=== PATIENT | female | born 1970 | race Caucasian/White ===

== ENCOUNTER → 2016-08-09 | Outpatient (CLI) | payer BC ==
[~2016-08-09] MED LIST: ALBUTEROL0.09 MG/Ac IH; AMBIEN10 M1 PO; APRISO0.375 GM PO; ATIVAN2 M1 PO; CILOXAN 5 ML5 M1 OP; CIPROFLOXACIN500 MG PO; DARVOCET N 1001 TAB PO; DEXILANT30 MG PO; FLORICAL PO; IBU-6600 MG PO; MIRALAX17 GM PO; PERCOCET 325 MG1 TA6 PO; PROTONIX40 MG PO; RESTORIL15 MG PO; RITALIN10 MG PO; SEROQUEL XR150 MG PO; VICODIN ES 7501 TAB PO; XANAX0.5 MG PO; ZANTAC150 MG PO; ZOFRAN4 MG PO
== END | disposition home or self-care (01) ==
LOC: RAD 13:27
DX: M54.16 Radiculopathy, lumbar region (principal); M47.9 Spondylosis, unspecified; M54.5 Low back pain; Z91.81 History of falling

== ENCOUNTER 2018-06-02 10:12 | Emergency (ER) | payer BC ==
[~2018-06-02] VITALS: Ht 165.1 cm; Wt 70.3 kg
[2018-06-02 10:15] VITALS: BP 124/39
[2018-06-02] MEDS ORDERED: AZITHROMYCIN500 M2 PO (11:17)
[2018-06-02] MEDS ORDERED: MUCINEX1200 M1 PO (11:17)
[2018-06-02] MEDS ORDERED: PREDNISONE20 M1 PO (11:17)
== END 2018-06-02 12:02 | disposition home or self-care (01) ==
LOC: ED 10:12
DX: J03.90 Acute tonsillitis, unspecified (principal); J20.9 Acute bronchitis, unspecified; M62.838 Other muscle spasm; Z91.048 Other nonmedicinal substance allergy status; Z88.0 Allergy status to penicillin; Z88.2 Allergy status to sulfonamides; Z88.6 Allergy status to analgesic agent; Z88.1 Allergy status to other antibiotic agents; Z79.899 Other long term (current) drug therapy

== ENCOUNTER 2022-05-07 09:21 | Emergency (ER) | payer OTHER ==
[~2022-05-07] VITALS: Ht 165.1 cm; Wt 58.1 kg
[~2022-05-07 09:21] MED LIST changes: +AZITHROMYCIN500 M2 PO; +MUCINEX1200 M1 PO; +PREDNISONE20 M1 PO
[2022-05-07 09:51] VITALS: BP 133/71
[2022-05-07 10:25] LABS: BASO % 0.8 % (0.0-1.0); EOS # 0.1 10*3/uL (0.0-0.4); EOS % 2.3 % (1.0-4.0); HEMATOCRIT 38.7 % (37.0-47.0); MEAN CELL VOLUME 86.6 fl (81.0-99.0); MEAN CORPUSCULAR HGB 30.9 pg (27.0-31.0); MEAN CORPUSCULAR HGB CONC 35.7 g/dl (33.0-37.0); MEAN PLATELET VOLUME 9.4 fl (9.6-12.3); MONO # 0.4 10*3/uL (0.1-1.0); MONO % 8.1 % (3.0-9.0); NEUT # 3.3 10*3/uL (2.3-7.9); NEUT % 68.6 % (47.0-73.0); PLATELET COUNT AUTOMATED 227 10*3/uL (130-400); RED BLOOD COUNT 4.47 10*6/uL (4.10-5.10); RED CELL DISTRI WIDTH 13.1 % (0-14.5); WHITE BLOOD COUNT 4.8 10*3/uL (4.8-10.8)
[2022-05-07 10:41] LABS: ALKALINE PHOSPHATASE 85 U/L (46-116); BUN 7 mg/dl (9-23); CHLORIDE 100 mmol/L (98-107); CREATININE 0.72 mg/dL (0.55-1.02); LIPASE 48 U/L (12-53); POTASSIUM 3.8 mmol/L (3.4-5.1); SGPT/ALT 17 U/L (10-49); SODIUM 130 mmol/L (136-145); TOTAL PROTEIN 6.2 gm/dL (6.0-8.0)
[2022-05-07 10:48] LABS: ACT PARTIAL THROMBO TIME 24.1 SECONDS (20.0-32.1)
[2022-05-07] MEDS ORDERED: PREDNISONE20 M1 PO (15:24)
== END 2022-05-07 15:46 | disposition home or self-care (01) ==
LOC: ED 09:21
PROVIDERS: Family Medicine
DX: H53.8 Other visual disturbances (principal); R51.9 Headache, unspecified; Z88.0 Allergy status to penicillin; Z88.8 Allergy status to other drugs, medicaments and biological substances; Z88.1 Allergy status to other antibiotic agents; Z88.2 Allergy status to sulfonamides; Z79.899 Other long term (current) drug therapy; Z98.890 Other specified postprocedural states

== ENCOUNTER → 2023-01-01 | Outpatient (CLI) | payer OTHER | END | disposition home or self-care (01) | LOC: CT 12-08 01:15 | PROVIDERS: ATTEND Specialist | DX: J34.2 Deviated nasal septum (principal) ==

== ENCOUNTER → 2023-07-31 | Outpatient (CLI) | payer OTHER | END | disposition home or self-care (01) | LOC: US 16:11 | PROVIDERS: ATTEND Podiatrist | DX: M79.605 Pain in left leg (principal); R60.0 Localized edema; Z87.2 Personal history of diseases of the skin and subcutaneous tissue ==

== ENCOUNTER → 2024-02-29 | Outpatient (CLI) | payer OTHER | END | disposition home or self-care (01) | LOC: LAB 17:36 | PROVIDERS: ATTEND Anesthesiology | DX: Z86.14 Personal history of Methicillin resistant Staphylococcus aureus infection (principal) ==